=== PATIENT | male | born 1980 | race Caucasian/White ===

== ENCOUNTER 2018-01-06 16:53 | Emergency (ER) | payer OTHER ==
[~2018-01-06] VITALS: Ht 172.7 cm; Wt 77.3 kg
[2018-01-06] MEDS ORDERED: IBUP-1984 PO (18:43)
[2018-01-06 19:29] LABS: BASOPHILS % (AUTO) 0.4 % (0-1); EOSINOPHILS # (AUTO) 0.4 X10'3 (0-0.9); EOSINOPHILS % (AUTO) 5.4 % (0-6); HEMATOCRIT 44.6 % (42.0-52.0); HEMOGLOBIN 15.3 g/dl (14.0-17.9); LYMPHOCYTES # (AUTO) 1.6 X10'3 (1.1-4.8); LYMPHOCYTES % (AUTO) 21.7 % (21-51); MEAN CORPUSCULAR HGB CONC 34.3 % (33.0-36.5); MEAN CORPUSCULAR VOLUME 90.3 FL (78-98); MEAN PLATELET VOLUME 7.3 FL (7.4-10.4); MONOCYTES # (AUTO) 0.5 X10'3 (0-0.9); MONOCYTES % (AUTO) 6.5 % (2-12); NEUTROPHILS # (AUTO) 4.9 X10'3 (1.8-7.7); PLATELET COUNT 306 X10'3 (140-440); RED BLOOD COUNT 4.94 X10'6 (4.70-6.10); RED CELL DISTRIBUTION WIDTH 13.6 % (11.5-14.5); WHITE BLOOD COUNT 7.4 X10'3 (4.5-11.0)
[2018-01-06 19:34] LABS: URINE AMPHETAMINE SCREEN NEGATIVE (Neg); URINE BARBITUATE SCREEN NEGATIVE (Neg); URINE BENZODIAZEPINES SCREEN NEGATIVE (Neg); URINE CANNABINOID SCREEN NEGATIVE (Neg); URINE COCAINE SCREEN NEGATIVE (Neg); URINE METHADONE SCREEN NEGATIVE (Neg); URINE OPIATE SCREEN NEGATIVE (Neg); URINE PHENCYCLIDINE SCREEN NEGATIVE (Neg)
[2018-01-06 19:41] LABS: ALANINE AMINOTRANSFERASE 15 U/L (12-78); ALBUMIN 4.2 G/DL (3.4-5.0); ALBUMIN/GLOBULIN RATIO 1.2 (1.1-1.5); ALKALINE PHOSPHATASE 35 IU/L (46-116); ANION GAP 3 (8-16); ASPARTATE AMINO TRANSFERASE 12 U/L (10-37); BILIRUBIN,TOTAL 0.8 MG/DL (0.1-1.0); BLOOD UREA NITROGEN 22 MG/DL (7-18); CHLORIDE 105 MMOL/L (99-107); CREATININE 1.22 MG/DL (0.60-1.10); GLUCOSE 96 MG/DL (70-104); POTASSIUM 3.6 MMOL/L (3.5-5.1); SODIUM 140 MMOL/L (135-145); TOTAL PROTEIN 7.7 G/DL (6.4-8.2); eGFR 68 ML/MIN
[2018-01-06 19:50] LABS: ETHANOL < 0.010 GM/DL (0.0-0.010)
[2018-01-06] MEDS ORDERED: quetiapine 100mg tablet PO ONE (22:00)
[2018-01-07 05:30] VITALS: BP 96/64
[2018-01-07 12:04] LABS: CLARITY,URINE Clear (Clear); COLOR,URINE Yellow (Yellow); GLUCOSE, URINE Negative (Neg); KETONES,URINE Negative (Neg); LEUKOCYTE ESTERASE ,URINE Negative (Neg); NITRITES, URINE Negative (Neg); OCCULT BLOOD,URINE Moderate (Neg); PROTEIN,URINE Negative (Neg)
[2018-01-07 12:06] LABS: UA COLLECTION TYPE CLN CATCH MIDSTREAM
[2018-01-07 12:10] LABS: BACTERIA,URINE FEW /HPF (Neg); MUCUS STRANDS FEW /LPF (Neg); RBC,URINE 20-50 /HPF (0-2); SQUAMOUS EPITHELIAL CELL,UR FEW /LPF (FEW); WBC,URINE 0-4 /HPF (0-4)
[2018-01-07] MEDS ORDERED: quetiapine 100mg tablet PO SCH (21:00)
== END 2018-01-07 15:42 ==
LOC: ER 16:54
DX: F20.9 Schizophrenia, unspecified (principal); F17.200 Nicotine dependence, unspecified, uncomplicated; F15.90 Other stimulant use, unspecified, uncomplicated
CPT/HCPCS: 36415; 80053; 80305; 80320; 81001; 84443; 85025; 99285

== ENCOUNTER 2021-07-28 10:58 | Emergency (ER) | payer MEDICAID ==
[~2021-07-28] VITALS: Ht 182.9 cm; Wt 81.8 kg
[2021-07-28 11:34] LABS: CLARITY,URINE CLEAR (Clear); COLOR,URINE YELLOW (Yellow); GLUCOSE, URINE NEGATIVE (Neg); KETONES,URINE NEGATIVE (Neg); LEUKOCYTE ESTERASE ,URINE NEGATIVE (Neg); NITRITES, URINE NEGATIVE (Neg); OCCULT BLOOD,URINE NEGATIVE (Neg); PH,URINE 6.5 (4.8-8.0); PROTEIN,URINE NEGATIVE (Neg); UROBILINOGEN,URINE 0.2 E.U/dL (0.2-1.0)
[2021-07-28 11:36] LABS: UA COLLECTION TYPE CLN CATCH MIDSTREAM
[2021-07-28 11:36] LABS: BASOPHILS % (AUTO) 0.4 % (0-1); EOSINOPHILS # (AUTO) 0.1 X10'3 (0-0.9); EOSINOPHILS % (AUTO) 1.6 % (0-6); HEMATOCRIT 43.5 % (42.0-52.0); HEMOGLOBIN 15.4 g/dl (14.0-17.9); LYMPHOCYTES # (AUTO) 1.3 X10'3 (1.1-4.8); LYMPHOCYTES % (AUTO) 14.2 % (21-51); MEAN CORPUSCULAR HEMOGLOBIN 32.2 PG (27.0-31.0); MEAN CORPUSCULAR HGB CONC 35.4 g/dL (33.0-36.5); MEAN CORPUSCULAR VOLUME 91.1 FL (78-98); MEAN PLATELET VOLUME 6.6 FL (7.4-10.4); MONOCYTES # (AUTO) 0.7 X10'3 (0-0.9); MONOCYTES % (AUTO) 7.6 % (2-12); NEUTROPHILS # (AUTO) 6.8 X10'3 (1.8-7.7); NEUTROPHILS % (AUTO) 76.2 % (42-75); PLATELET COUNT 313 X10'3 (140-440); RED BLOOD COUNT 4.77 X10'6 (4.70-6.10); RED CELL DISTRIBUTION WIDTH 13.3 % (11.5-14.5); WHITE BLOOD COUNT 8.9 X10'3 (4.5-11.0)
[2021-07-28 11:42] LABS: URINE AMPHETAMINE SCREEN POSITIVE (Neg); URINE BARBITUATE SCREEN NEGATIVE (Neg); URINE BENZODIAZEPINES SCREEN NEGATIVE (Neg); URINE CANNABINOID SCREEN NEGATIVE (Neg); URINE COCAINE SCREEN NEGATIVE (Neg); URINE METHADONE SCREEN NEGATIVE (Neg); URINE OPIATE SCREEN NEGATIVE (Neg); URINE PHENCYCLIDINE SCREEN NEGATIVE (Neg)
[2021-07-28 11:54] LABS: ALANINE AMINOTRANSFERASE 18 U/L (12-78); ALBUMIN/GLOBULIN RATIO 1.1 (1.1-1.5); ALKALINE PHOSPHATASE 38 IU/L (46-116); ANION GAP 9 (8-16); ASPARTATE AMINO TRANSFERASE 12 U/L (10-37); BILIRUBIN,TOTAL 0.6 MG/DL (0.1-1.0); BLOOD UREA NITROGEN 12 MG/DL (7-18); BUN/CREATININE RATIO 10.6 (5.4-32.0); CHLORIDE 106 MMOL/L (99-107); CREATININE 1.13 MG/DL (0.60-1.10); GLUCOSE 77 MG/DL (70-104); POTASSIUM 3.5 MMOL/L (3.5-5.1); SODIUM 145 MMOL/L (135-145); TOTAL CARBON DIOXIDE 29.6 MMOL/L (24-32); TOTAL PROTEIN 7.6 G/DL (6.4-8.2); eGFR 72 ML/MIN
[2021-07-28 12:12] LABS: ETHANOL < 0.010 GM/DL (0.0-0.010)
--- NOTE | 2021-07-28 12:50 | NUR ---
PT. RECEIVED FROM [facility] ER TO OVERFLOW. PT. PLACED IN BED #26 AND PROVIDED WITH A GREEN SCRUB SET. PT. MEDICATIONS AND PERSONAL BELONGINGS REMOVED. MEDICATION INVENTORIED AND SENT TO PHARMACY.
[2021-07-28] MEDS ORDERED: ARIP2TAB37 PO (13:05)
[2021-07-28] MEDS ORDERED: AMIT-189 PO (13:05)
[2021-07-28] MEDS ORDERED: MELA1TAB28 PO (13:05)
[2021-07-28] MEDS ORDERED: SERT100T PO (13:05)
[2021-07-28] MEDS ORDERED: PROP60CA37 PO (13:05)
[2021-07-28] MEDS ORDERED: sertraline 50mg tablet PO SCH (13:21)
[2021-07-28] MEDS ORDERED: propranolol LA 60 MG cap.SA.24H PO SCH (13:21)
--- NOTE | 2021-07-28 13:23 | NUR ---
PT. AAO X4 THIS SHIFT DENIES ANY CURRENT SI/HI OR VISUAL HALLUCIANATIONS. PT. STATES HE HAS AUDITORY HALLUCIANTIONS THAT ARE ALWAYS TALKING ABOUT RANDOM THINGS. PT. STATES THE VOICES WERE TELLING HIM TO HURT HIMSELF AND HIS MOTHER, PATIENT STATES LONG HE READING THE HE'S ABLE TO QUITE THE VOICES. PT. DENIES ANY OTHER COMPLAINTS AT THIS TIME. PT. PRESENTS CALM AND COOPERATIVE WITH ASSESSMENT. STAFF WILL CONTINUE TO MONITOR FOR SAFETY.
--- NOTE | 2021-07-28 16:36 | NUR ---
PT. REMAINS VISIBLE ON THE UNIT SITTING IN BED READING OUT LOUD TO HIMSELF.
--- NOTE | 2021-07-28 17:07 | NUR ---
RECE[facility] TO NURSE. THEN RUBIA GALLEGO TO SPEAK DIRECTLY WITH THE PATIENT. PHONE CALL TRANSFER TO UNIT PHONE AND GIVEN TO PATIENT.
--- NOTE | 2021-07-28 19:21 | NUR ---
PATIENT RECEIVED ON THE UNIT DSITTING IN BED. NO OBVIOUS DISTRESS NOTED.PATIENT BREATHING SPONTANOUSLY ON ROOM AIR. PATIENT ADMIT HAVING AUDIOTARY HALLUCINATION, PATIENT STATES THAT THE VOICES ARE TELLING HIM THAT HE IS BETTER OFF BEING HERE AT [place]. PATIENT DENIES HAVING ANY SUICIDAL IDEATION AT THIS TIME.
[2021-07-28] MEDS ORDERED: amitriptyline 50mg tablet PO SCH (21:00)
[2021-07-28] MEDS ORDERED: Melatonin 3mg tablet PO SCH (21:00)
[2021-07-28 21:02] VITALS: BP 126/80
== END 2021-07-29 07:46 ==
LOC: ER 10:58
DX: F29 Unspecified psychosis not due to a substance or known physiological condition (principal); Z20.822 Contact with and (suspected) exposure to COVID-19; F15.90 Other stimulant use, unspecified, uncomplicated
CPT/HCPCS: 36415; 80053; 80305; 80320; 81003; 84443; 85025; 87635; 99285; C9803